=== PATIENT | female | born 1975 | race African-American/Black ===

== ENCOUNTER 2024-09-06 09:36 | Inpatient (IN) | payer OTHER ==
[~2024-09-06] VITALS: Ht 167.6 cm; Wt 109.8 kg
[2024-09-06] MEDS: IPRATROPIUM BROMIDE (0.02%) 0.5MG/2.5ML NEB HHN STA (10:11)
[2024-09-06] MEDS: ALBUTEROL (0.083%) 2.5MG/3ML NEB HHN SCH (10:11)
[2024-09-06 10:12] VITALS: PULSE 107; RESP 28; O2SAT 96
[2024-09-06] MEDS: METHYLPREDNISOLONE SOD SUCC 125MG/2ML (ACT-O-VIAL) IV STA (10:15)
[2024-09-06] MEDS: FUROSEMIDE 100MG/10ML VIAL IVP ONE (11:35)
[2024-09-06 12:16] LABS: BASOPHILS % 0.5 % (0.0-2.0); EOSINOPHILS % 0.2 % (0.0-5.0); HEMATOCRIT. 31.1 % (36.0-48.0); LYMPHOCYTES % 16.1 % (20.0-50.0); MEAN CORPUSCULAR HGB CONC 32.1 g/dL (31.0-37.0); MEAN CORPUSCULAR VOLUME 80.9 fL (81.0-99.0); MEAN PLATELET VOLUME 7.4 fl (7.4-10.4); NEUTROPHILS % 80.2 % (40.0-76.0); PLATELET 253 x1000/uL (130-400); RED BLOOD CELL COUNT 3.84 mill/uL (4.2-5.4); RED CELL DISTRIBUTION WIDTH 16.6 % (11.6-14.6); WHITE BLOOD COUNT 7.7 x1000/uL (4.5-11.0)
[2024-09-06 12:32] LABS: CHLORIDE 110 mEq/L (98-107); POTASSIUM 3.5 mEq/L (3.5-5.1); SODIUM 144 mEq/L (136-145)
[2024-09-06 12:33] LABS: CALCIUM 9.2 mg/dL (8.7-10.4); CARBON DIOXIDE 24 mEq/L (21-32)
[2024-09-06 12:38] LABS: CREATININE 1.3 mg/dL (0.6-1.0); GLUCOSE 194 mg/dL (70-105); UREA NITROGEN BLOOD 22 mg/dL (9-23)
[2024-09-06 13:02] LABS: HCG SCREEN INDETERMINATE
[2024-09-06 13:05] LABS: TROPONIN I HIGH SENSITIVITY 37 ng/L (3.0-34)
[2024-09-06 15:48] LABS: TROPONIN I HIGH SENSITIVITY 50 ng/L (3.0-34)
[2024-09-06] MEDS ORDERED: DOCUSATE SODIUM 100MG CAPSULE PO PRN (16:15)
[2024-09-06] MEDS: LOSARTAN 50 MG TABLET PO SCH (16:58)
[2024-09-06] MEDS: ENOXAPARIN 30MG/0.3ML SYR SUBCUT SCH (18:46)
[2024-09-06 20:00] VITALS: BP 185/85; PULSE 90; RESP 20; TEMP 36.89184; O2SAT 100
[2024-09-06] MEDS: CARVEDILOL 6.25 MG TABLET PO SCH (21:23)
[2024-09-07] VITALS (9 sets, daily range): BP systolic 122–198; BP diastolic 65–127; PULSE 82–113; RESP 16–20; TEMP 36.33624–36.89184; O2SAT 88–100
[2024-09-07 02:24] LABS: TROPONIN I HIGH SENSITIVITY 133 ng/L (3.0-34)
[2024-09-07 08:27] LABS: BASOPHILS % 0.1 % (0.0-2.0); HEMATOCRIT. 30.9 % (36.0-48.0); HEMOGLOBIN. 9.8 g/dL (12.0-16.0); LYMPHOCYTES % 10.1 % (20.0-50.0); MEAN CORPUSCULAR HEMOGLOBIN 25.8 pg (28.0-32.0); MEAN CORPUSCULAR HGB CONC 31.9 g/dL (31.0-37.0); MONOCYTES % 8.4 % (2.0-8.0); NEUTROPHILS % 81.4 % (40.0-76.0); PLATELET 281 x1000/uL (130-400); RED BLOOD CELL COUNT 3.81 mill/uL (4.2-5.4); RED CELL DISTRIBUTION WIDTH 16.6 % (11.6-14.6); WHITE BLOOD COUNT 12.8 x1000/uL (4.5-11.0)
[2024-09-07 08:42] LABS: CALCIUM 9.6 mg/dL (8.7-10.4); POTASSIUM 4.4 mEq/L (3.5-5.1)
[2024-09-07] MEDS: ASPIRIN 81MG EC TABLET PO SCH (08:47)
[2024-09-07 08:48] LABS: CREATININE 1.2 mg/dL (0.6-1.0)
[2024-09-07 08:49] LABS: T4 FREE 1.36 ng/dL (0.89-1.76); THYROID STIMULATING HORMONE 0.8 uIU/mL (0.55-4.78)
[2024-09-07] MEDS: HYDRALAZINE HCL 25MG TABLET PO SCH (10:00)
[2024-09-07] MEDS: ISOSORBIDE MONONITRATE 30MG TABLET SR 24HR PO SCH (11:37)
[2024-09-07] MEDS: FUROSEMIDE 40MG/4ML VIAL IV SCH (14:37)
[2024-09-07 18:33] LABS: INR 0.9; PROTHROMBIN TIME 10.6 sec (9.6-11.0)
[2024-09-07] MEDS: FUROSEMIDE 40MG/4ML VIAL IVP NR (18:49)
[2024-09-07] MEDS: ATORVASTATIN CALCIUM 40MG TABLET PO SCH (21:54)
[2024-09-08] VITALS: BP 115/72; PULSE 83; RESP 18; TEMP 37.05852; O2SAT 100
[2024-09-08 04:00] VITALS: BP 106/74; PULSE 82; RESP 16; TEMP 36.3918; O2SAT 97
[2024-09-08 07:23] LABS: CALCIUM 9.2 mg/dL (8.7-10.4); CARBON DIOXIDE 28 mEq/L (21-32); CHLORIDE 105 mEq/L (98-107); POTASSIUM 4.1 mEq/L (3.5-5.1); SODIUM 140 mEq/L (136-145)
[2024-09-08 07:29] LABS: CREATININE 1.3 mg/dL (0.6-1.0); GLUCOSE 109 mg/dL (70-105); UREA NITROGEN BLOOD 25 mg/dL (9-23)
[2024-09-08 07:31] LABS: PHOSPHORUS 3.4 mg/dL (2.5-4.9)
[2024-09-08 08:00] VITALS: BP 142/79; PULSE 82; RESP 17; TEMP 36.28068; O2SAT 98
[2024-09-08 08:01] LABS: BASOPHILS % 0.4 % (0.0-2.0); EOSINOPHILS % 1.1 % (0.0-5.0); HEMATOCRIT. 27.4 % (36.0-48.0); LYMPHOCYTES % 15.5 % (20.0-50.0); MEAN CORPUSCULAR HEMOGLOBIN 26.3 pg (28.0-32.0); MEAN CORPUSCULAR HGB CONC 32.7 g/dL (31.0-37.0); MEAN CORPUSCULAR VOLUME 80.2 fL (81.0-99.0); MEAN PLATELET VOLUME 8.1 fl (7.4-10.4); MONOCYTES % 6.8 % (2.0-8.0); NEUTROPHILS % 76.2 % (40.0-76.0); PLATELET 229 x1000/uL (130-400); RED BLOOD CELL COUNT 3.42 mill/uL (4.2-5.4); RED CELL DISTRIBUTION WIDTH 16.3 % (11.6-14.6); WHITE BLOOD COUNT 8.4 x1000/uL (4.5-11.0)
[2024-09-08 09:56] VITALS: PULSE 87
[2024-09-08] MEDS: LOSARTAN 100 MG TABLET PO SCH (09:56)
[2024-09-08] MEDS: PNEUMOCOCCAL 20-VAL CONJ-DIP CRM 0.5ML IM ONE (10:01)
[2024-09-08] MEDS ORDERED: COR6 PO (13:11)
[2024-09-08] MEDS ORDERED: FURO10VI3 PO (13:11)
[2024-09-08] MEDS ORDERED: ASPI-1406 PO (13:11)
[2024-09-08] MEDS ORDERED: HYDR25TA78 PO (13:11)
[2024-09-08] MEDS ORDERED: LOSA100T33 PO (13:11)
[2024-09-08] MEDS ORDERED: ISOS30TA91 PO (13:11)
[2024-09-08] MEDS ORDERED: LIP40 PO (13:11)
== END 2024-09-08 13:00 | disposition left against medical advice (07) | DRG 282 ==
LOC: ER 09:36 → 5WST 12:35 → EDBEDREQ 12:48 → EDBEDREQTM 12:48
PROVIDERS: ADMIT Internal Medicine; ATTEND Internal Medicine
DX: I11.0 Hypertensive heart disease with heart failure (principal); I21.A1 Myocardial infarction type 2; Z53.29 Procedure and treatment not carried out because of patient's decision for other reasons; I16.0 Hypertensive urgency; I50.9 Heart failure, unspecified; E11.9 Type 2 diabetes mellitus without complications; D72.829 Elevated white blood cell count, unspecified; D64.9 Anemia, unspecified; E66.9 Obesity, unspecified; Z68.39 Body mass index [BMI] 39.0-39.9, adult; Z79.4 Long term (current) use of insulin; Z79.899 Other long term (current) drug therapy
CPT/HCPCS: 36415; 71045; 80048; 80061; 83735; 84100; 84145; 84439; 84443; 84484; 84703; 85025; 93005; 94640; 99291; J1650; J1940; J2919